=== PATIENT | male | born 1995 | race Caucasian/White ===

== ENCOUNTER 2022-04-20 15:56 | Emergency (ER) | payer MEDICAID ==
[2022-04-20] MEDS ORDERED: BACTROBAN OINT22 GM EXT (17:39)
[2022-04-20] MEDS ORDERED: IBUPROFEN800 MG PO (17:39)
== END 2022-04-20 18:21 | disposition home or self-care (01) ==
LOC: ER1 15:56
DX: S60.222A Contusion of left hand, initial encounter (principal); W23.0XXA Caught, crushed, jammed, or pinched between moving objects, initial encounter; Y92.89 Other specified places as the place of occurrence of the external cause; Y99.0 Civilian activity done for income or pay
CPT/HCPCS: 29125; 73130; 99283